=== PATIENT | female | born 1995 | race Two or more races ===

== ENCOUNTER → 2019-02-08 | Outpatient (CLI) | payer BC ==
[~2019-02-08] MED LIST: GADOBUTROL 7.5 MMOL/7.5 ML PFS ONE; HYDR200T72 PO; PRED1TAB PO; PREN1TAB60 PO; TRAM50TA2 PO
== END | disposition home or self-care (01) ==
LOC: CFH 15:02
PROVIDERS: ATTEND Family Medicine
DX: R59.1 Generalized enlarged lymph nodes (principal)
CPT/HCPCS: 70543; 76536; A9585

== ENCOUNTER 2019-06-01 08:42 | Emergency (ER) | payer BC ==
[~2019-06-01] VITALS: Ht 154.9 cm; Wt 75.0 kg
[2019-06-01 08:44] VITALS: BP 127/93
== END 2019-06-01 10:50 | disposition home or self-care (01) ==
LOC: ED 10:49
DX: B34.9 Viral infection, unspecified (principal); K12.0 Recurrent oral aphthae
CPT/HCPCS: 36415; 80048; 81003; 81025; 82040; 85025; 99283; Q0162

== ENCOUNTER 2021-06-25 12:29 | Emergency (ER) | payer BC, OTHER ==
[~2021-06-25 12:29] MED LIST changes: -GADOBUTROL 7.5 MMOL/7.5 ML PFS ONE; -PRED1TAB PO; +PRED1TAB19 PO
--- NOTE | 2021-06-25 12:57 | NUR ---
CALLED FOR TRIAGE, NO ANSWER
--- NOTE | 2021-06-25 13:06 | NUR ---
CALLED FOR TRIAGE NO ANSWER [phone]
--- NOTE | 2021-06-25 13:31 | NUR ---
CALLED FOR TRIAGE, NO ANSWER
== END 2021-06-25 13:32 | disposition left against medical advice (07) ==
LOC: ED 13:25
DX: O20.9 Hemorrhage in early pregnancy, unspecified (principal); Z53.21 Procedure and treatment not carried out due to patient leaving prior to being seen by health care provider; Z3A.01 Less than 8 weeks gestation of pregnancy